=== PATIENT | male | born 1955 | race Caucasian/White ===

== ENCOUNTER → 2021-10-17 15:47 | Outpatient (REF) | payer MEDICARE, MEDICAID, SELFPAY ==
--- NOTE | 2021-10-17 15:59 | CA_ITS ---
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 Hyperdynamic LV systolic function with LVEF of greater than 70% with moderate LVH and pseudonormal filling pattern 2. Normal cardiac valvular Doppler 3. No gross pericardial effusion Findings Left Ventricle Normal left ventricular cavity size. There is moderately increased left ventricular wall thickness. The left ventricular systolic function is hyperdynamic. The visually estimated ejection fraction is >70%. Spectral Doppler is indicative of a pseudonormal filling pattern. E/E prime ratio is between 8 and 15 consistent with indeterminate filling pressures. Right Ventricle Normal right ventricular cavity size and systolic function. Atria The left atrium is likely dilated. Interatrial shunt cannot be excluded. The right atrium is normal in size. Aortic Valve The aortic valve was not well visualized. There is no aortic valve stenosis. There is no aortic valve regurgitation. Mitral Valve Likely normal mitral valve structure and function. There is trace mitral valve regurgitation. There is no mitral valve stenosis. Pulmonic Valve The pulmonic valve was not well visualized. Tricuspid Valve The tricuspid valve was not well visualized. Tricuspid regurgitation envelope is inadequate for calculation of right ventricular systolic pressure. Normal right atrial pressure. Great Vessels All visible segments of the aorta are normal in size. The pulmonary artery was not well visualized. Venous The inferior vena cava is normal in size and collapses greater than 50% with inspiration. Pericardium/Pleural There is no evidence of pericardial effusion. Prior Study Comparison No significant change compared to prior study dated: 04/12/2017. compared to prior study from different institution Measurements 2D Linear Measurements IVSd: 1.56 0.6-0.9/0.6-1.0 cm LVIDd: 3.91 3.9-5.3/4.2-5.9 cm LVIDd Index: 2.18 2.4-3.2/2.2-3.1 cm/m2 LVIDs: 2.34 2.0-3.6 cm LVPWd: 1.41 0.7-1.1 cm LA Diam: 3.30 2.7-3.8/3.0-4.0 cm LAIDs Index: 1.84 1.5-2.3 cm/m2 LV Mass: 276.52 67-162/88-224 g LV Mass Index: 154.48 43-95/49-115 g/m2 LVOT Diam: 1.90 3.0+(-)1.3 cm Mitral Valve MV Pk E: 0.92 MV PK A: 0.99 MV Decel Time: 207.00 E/A: 0.90 E'Lateral: 6.38 E'Medial: 3.45 E/E' Med: 26.80 E/E' Lat: 14.50 PHT: 60.00 MVA PHT: 3.67 Decel [place]: 4.48 Aortic Valve AoV Pk Connor: 1.61 AoV Mn Connor: 1.06 AoV VTI: 0.33 AoV Pk Grad: 10.00 Aov Mn Grad: 5.00 CATHY Cont.VTI: 2.89 LVOT LVOT Pk Connor: 1.43 LVOT Mn Connor: 1.03 LVOT VTI: 0.34 LVOT Pk Grad: 8.00 LVOT Mn Grad: 5.00 LVOT Diam: 1.90 LVOT Area: 2.84 Diastolic Function MV Pk E: 0.92 MV Pk A: 0.99 E/A: 0.90 E'Medial: 3.45 E/E' Med: 26.80 E' Laterial: 6.38 E/E' Lat: 14.50 Right Ventricle TAPSE (mm): 20.60 TVS' Connor: 11.70 Tricuspid Valve RA Press: 3.00 Great Vessels Aorta Sinus of Valsalva: 3.60 2.0-3.[address] Ridge: 3.45 1.7-3.4 cm Ao Asc: 3.60 2.1-3.4 cm Ao Arch: 2.70 Updated in Other Vendor System with Status of Final Roberto Carlos Field MD electronically signed on 10/18/2021 1:07:20 PM with status of Final
== END ==
LOC: HO.CARD 15:47
PROVIDERS: Visit Provider Internal Medicine Critical Care Medicine
DX: J96.11 Chronic respiratory failure with hypoxia (principal)
CPT/HCPCS: 93306